=== PATIENT | female | born 1975 | race Hispanic/Latino ===

== ENCOUNTER 2021-03-27 22:20 | Emergency (ER) | payer OTHER ==
[~2021-03-27] VITALS: Ht 152.4 cm; Wt 154.2 kg
[2021-03-27] MEDS ORDERED: ONDANSETRON 4 MG TABLET PO SCH (22:45)
[2021-03-27] MEDS ORDERED: MAG HYDROX/AL HYDROX/SIMETH ES 30 ML SUSP UDCUP PO SCH (22:45)
[2021-03-27] MEDS ORDERED: LIDOCAINE HCL 2% VISCOUS 15 ML UDCUP PO SCH (22:45)
[2021-03-28] VITALS: BP 124/62
== END 2021-03-28 01:27 | disposition home or self-care (01) ==
LOC: EDH 22:20
DX: T65.891A Toxic effect of other specified substances, accidental (unintentional), initial encounter (principal); R10.9 Unspecified abdominal pain; E66.9 Obesity, unspecified; Z68.44 Body mass index [BMI] 60.0-69.9, adult; Y92.69 Other specified industrial and construction area as the place of occurrence of the external cause
CPT/HCPCS: 99284; Q0162